=== PATIENT | male | born 1955 | race Caucasian/White ===

== ENCOUNTER 2017-06-01 13:17 | Observation (INO) | payer OTHER ==
[2017-06-01] MEDS ORDERED: ONDANSETRON 4 MG/2 ML VIAL IVP ONE (14:08)
[2017-06-01] MEDS ORDERED: NS 1,000 ML IV ONE (14:08)
[2017-06-01 14:12] LABS: PLATELET COUNT 192 10^3/uL (150-400)
--- NOTE | 2017-06-01 14:25 | EDPHY ---
H & P Time Seen by Provider: 06/01/17 13:44 HPI/ROS: CHIEF COMPLAINT:epigastric pain HISTORY OF PRESENT ILLNESS: The patient is a 62 y/o male with a history of proximal atrial fibrillation and pancreatitis complaining of a prolonged episode of atrial fibrillation and a recurrence of pancreatic symptoms. He controls his atrial fibrillation with magnesium and selium powder and with a prescription for diltiazem to use as needed. Last night, he awoke around 2 AM in atrial fibrillation and took diltiazem. At 7am this morning, he was still in atrial fibrillation and took aspirin. His atrial fibrillation resolved around 9 AM, 5 hours ago. Around lunch , 2 hours ago, he began experiencing epigastric pain which radiated into his back and was accompanied by nausea and hypersalivation. He reports his symptoms are identical to his symptoms when he previously had pancreatitis. Epigastric pain is 5/10. He denies recent alcohol consumption. He feels his symptoms may be precipitated by dehydration as he spent twice the normal time in his hot tub last night. No recent illness. REVIEW OF SYSTEMS: A 10 point review of systems was performed and is negative with the exception of the elements mentioned in the history of present illness. Past Medical/Surgical History: Pancreatitis Paroxysmal atrial fibrillation Social History: Lives in [place], employed, no alcohol use Smoking Status: Former smoker Physical Exam: General Appearance: Alert, pleasant Eyes: Pupils equal and round, no conjunctival pallor or injection ENT, Mouth: Mucous membranes moist Neck: Normal inspection Respiratory: Lungs are clear to auscultation Cardiovascular: Regular rate and rhythm Gastrointestinal: Epigastric tenderness. Abdomen is soft Back: Normal to appearance, no tenderness Neurological: A&O, nonfocal exam Skin: Warm and dry, no rash Extremities: Nontender, no pedal edema Psychiatric: Mood and affect normal Constitutional: Initial Vital Signs Temperature (C) 36.9 C 06/01/17 13:22 Heart Rate 69 06/01/17 13:22 Respiratory Rate 16 06/01/17 13:22 Blood Pressure 135/90 H 06/01/17 13:22 O2 Sat (%) 94 06/01/17 13:22 O2 Delivery Mode Room Air Allergies/Adverse Reactions: coffee (Coffea arabica) [coffee] Allergy (Verified 11/07/13 02:15) Home Medications: Medication Instructions Recorded Aspirin [Aspirin 325 mg (*)] 325 mg PO DAILY 04/30/15 Herbals/Supplements -Info Only 1 ea PO DAILY 04/30/15 Diltiazem [Cardizem Ir Q6hr] 30 mg PO QID PRN #30 tab 05/01/15 Medical Decision Making - Diagnostics EKG Interpretation: EKG interpreted by me reveals normal sinus rhythm, rate 62, no ST segment changes. Interpretation: Normal EKG ED Course/Re-evaluation: This patient presents with epigastric pain, typical of prior pancreatitis. IV normal saline 1 L, morphine and Zofran IV given. EKG reveals normal sinus rhythm, without evidence of ischemia or dysrhythmia. Lipase 695, consistent with mild pancreatitis, which is consistent with symptoms for only a couple of hours. I will admit him for bowel rest and IV fluids. The hospitalist service was consulted for admission. Abdominal exam remained unchanged throughout. Lakin better after IV morphine and Zofran. Differential Diagnosis: Differential diagnosis includes though it is not limited to appendicitis, cholecystitis, diverticulitis, pyelonephritis, bowel perforation, small bowel obstruction. - Data Points Laboratory Results: Laboratory Results 06/01/17 13:50 06/01/17 13:50 06/01/17 06/01/17 06/01/17 14:00 13:50 13:50 WBC 8.42 10^3/uL 10^3/uL (3.80-9.50) RBC 5.34 10^6/uL 10^6/uL (4.40-6.38) Hgb 17.2 g/dL g/dL (13.7-17.5) Hct 47.2 % % (40.0-51.0) MCV 88.4 fL fL (81.5-99.8) MCH 32.2 pg pg (27.9-34.1) MCHC 36.4 g/dL g/dL (32.4-36.7) RDW 12.9 % % (11.5-15.2) Plt Count 192 10^3/uL 10^3/uL (150-400) MPV 10.1 fL fL (8.7-11.7) Neut % (Auto) 56.6 % % (39.3-74.2) Lymph % (Auto) 25.9 % % (15.0-45.0) [place] % (Auto) 13.3 % H % (4.5-13.0) Eos % (Auto) 3.0 % % (0.6-7.6) Baso % (Auto) 0.8 % % (0.3-1.7) Nucleat RBC Rel Count 0.0 % % (0.0-0.2) Absolute Neuts (auto) 4.77 10^3/uL 10^3/uL (1.70-6.50) Absolute Lymphs (auto) 2.18 10^3/uL 10^3/uL (1.00-3.00) Absolute Monos (auto) 1.12 10^3/uL H 10^3/uL (0.30-0.80) Absolute Eos (auto) 0.25 10^3/uL 10^3/uL (0.03-0.40) Absolute Basos (auto) 0.07 10^3/uL 10^3/uL (0.02-0.10) Absolute Nucleated RBC 0.00 10^3/uL 10^3/uL (0-0.01) Immature Gran % 0.4 % % (0.0-1.1) Immature Gran # 0.03 10^3/uL 10^3/uL (0.00-0.10) Sodium 141 mEq/L mEq/L (135-145) Potassium 4.0 mEq/L mEq/L (3.5-5.2) Chloride 103 mEq/L mEq/L (97-110) Carbon Dioxide 24 mEq/l mEq/l (22-31) Anion Gap 14 mEq/L mEq/L (8-16) BUN 16 mg/dL mg/dL (7-23) Creatinine 0.9 mg/dL mg/dL (0.7-1.3) Estimated GFR > 60 Glucose 85 mg/dL mg/dL (70-100) Calcium 9.4 mg/dL mg/dL (8.5-10.4) Total Bilirubin 0.7 mg/dL mg/dL (0.1-1.4) Conjugated Bilirubin 0.3 mg/dL mg/dL (0.0-0.5) Unconjugated Bilirubin 0.4 mg/dL mg/dL (0.0-1.1) AST 27 IU/L IU/L (17-59) ALT 41 IU/L IU/L (21-72) Alkaline Phosphatase 45 IU/L IU/L (38-126) Troponin I 0.013 ng/mL ng/mL (0.000-0.034) Total Protein 7.3 g/dL g/dL (6.3-8.2) Albumin 4.2 g/dL g/dL (3.5-5.0) Lipase 697 IU/L H IU/L (23-300) Medications Given: Hydromorphone HCl (Dilaudid) 0.2 - 0.4 mg IVP Q2HRS PRN PRN Reason: Pain, Severe Unable to Take PO Stop: 06/11/17 15:54 Last Admin: 06/01/17 17:14 Dose: 0.4 mg Discontinued Medications Sodium Chloride (Ns) 1,000 mls @ 0 mls/hr IV EDNOW ONE; Wide Open PRN Reason: Protocol Stop: 06/01/17 14:09 Last Admin: 06/01/17 14:38 Dose: 1,000 mls Morphine Sulfate (Morphine) 6 mg IVP EDNOW ONE Stop: 06/01/17 14:09 Last Admin: 06/01/17 14:39 Dose: 6 mg Ondansetron HCl (Zofran) 4 mg IVP EDNOW ONE Stop: 06/01/17 14:09 Last Admin: 06/01/17 14:39 Dose: 4 mg Departure - Departure Disposition: [facility] Inpatient Acute Clinical Impression: Acute pancreatitis Qualifiers: Pancreatitis type: unspecified pancreatitis type Acute pancreatitis complication: unspecified Qualified Code(s): K85.90 - Acute pancreatitis without necrosis or infection, unspecified Condition: Good Report Scribed for: Tianan Fletcher Report Scribed by: Lucie Gallagher Date of Report: 06/01/17 Time of Report: 15:14 Physician Review and Approval Statement: 06/01/17 15:14 Portions of this note were transcribed by a medical front desk coordinator. I personally performed a history, physical exam, medical decision making, and confirmed accuracy of information the transcribed note.
--- NOTE | 2017-06-01 15:09 | EDPHY ---
H & P Time Seen by Provider: 06/01/17 13:44 HPI/ROS: CHIEF COMPLAINT: Atrial fibrillation and pancreatitis symptoms HISTORY OF PRESENT ILLNESS: The patient is a 62 y/o male with a history of proximal atrial fibrillation and pancreatitis complaining of a prolonged episode of atrial fibrillation and a recurrence of pancreatic symptoms. He controls his atrial fibrillation with magnesium and cilium powder and with a prescription for diltiazem to use as needed. Last night, he awoke around 2 AM in atrial fibrillation and took his diltiazem. When he got up, he was still in atrial fibrillation and took aspirin. His atrial fibrillation resolved around 9 AM, 5 hours ago. Around lunch , 2 hours ago, he began experiencing epigastric pain which radiated into his back and was accompanied by nausea and hypersalivation. He reports his symptoms are identical to his symptoms when he previously had pancreatitis. He has associated trouble breathing when in atrial fibrillation. He rates his pain as 4 or 5 out of 10. He denies recent alcohol consumption. He feels his symptoms may be precipitated by dehydration as he spent twie the normal time in his hot tub last night. REVIEW OF SYSTEMS: A 10 point review of systems was performed and is negative with the exception of the elements mentioned in the history of present illness. Past Medical/Surgical History: 1. Proximal atrial fibrillation 2. Pancreatitis Social History: Lives in [place], employed, no alcohol use Smoking Status: Former smoker Physical Exam: General Appearance: Alert, pleasant Eyes: Pupils equal and round, no conjunctival pallor or injection ENT, Mouth: Mucous membranes moist Neck: Normal inspection Respiratory: Lungs are clear to auscultation Cardiovascular: Regular rate and rhythm Gastrointestinal: Epigastric tenderness. Abdomen is soft Back: Normal to appearance, no tenderness Neurological: A&O, nonfocal exam Skin: Warm and dry, no rash Extremities: Nontender, no pedal edema Psychiatric: Mood and affect normal Constitutional: Initial Vital Signs Temperature (C) 36.9 C 06/01/17 13:22 Heart Rate 69 06/01/17 13:22 Respiratory Rate 16 06/01/17 13:22 Blood Pressure 135/90 H 06/01/17 13:22 O2 Sat (%) 94 06/01/17 13:22 O2 Delivery Mode Room Air Allergies/Adverse Reactions: coffee (Coffea arabica) [coffee] Allergy (Verified 11/07/13 02:15) Home Medications: Medication Instructions Recorded Aspirin [Aspirin 325 mg (*)] 325 mg PO DAILY 04/30/15 Herbals/Supplements -Info Only 1 ea PO DAILY 04/30/15 Diltiazem [Cardizem Ir Q6hr] 30 mg PO QID PRN #30 tab 05/01/15 Medical Decision Making - Data Points Laboratory Results: Laboratory Results 06/01/17 13:50 06/01/17 13:50 06/01/17 06/01/17 06/01/17 14:00 13:50 13:50 WBC 8.42 10^3/uL 10^3/uL (3.80-9.50) RBC 5.34 10^6/uL 10^6/uL (4.40-6.38) Hgb 17.2 g/dL g/dL (13.7-17.5) Hct 47.2 % % (40.0-51.0) MCV 88.4 fL fL (81.5-99.8) MCH 32.2 pg pg (27.9-34.1) MCHC 36.4 g/dL g/dL (32.4-36.7) RDW 12.9 % % (11.5-15.2) Plt Count 192 10^3/uL 10^3/uL (150-400) MPV 10.1 fL fL (8.7-11.7) Neut % (Auto) 56.6 % % (39.3-74.2) Lymph % (Auto) 25.9 % % (15.0-45.0) [place] % (Auto) 13.3 % H % (4.5-13.0) Eos % (Auto) 3.0 % % (0.6-7.6) Baso % (Auto) 0.8 % % (0.3-1.7) Nucleat RBC Rel Count 0.0 % % (0.0-0.2) Absolute Neuts (auto) 4.77 10^3/uL 10^3/uL (1.70-6.50) Absolute Lymphs (auto) 2.18 10^3/uL 10^3/uL (1.00-3.00) Absolute Monos (auto) 1.12 10^3/uL H 10^3/uL (0.30-0.80) Absolute Eos (auto) 0.25 10^3/uL 10^3/uL (0.03-0.40) Absolute Basos (auto) 0.07 10^3/uL 10^3/uL (0.02-0.10) Absolute Nucleated RBC 0.00 10^3/uL 10^3/uL (0-0.01) Immature Gran % 0.4 % % (0.0-1.1) Immature Gran # 0.03 10^3/uL 10^3/uL (0.00-0.10) Sodium 141 mEq/L mEq/L (135-145) Potassium 4.0 mEq/L mEq/L (3.5-5.2) Chloride 103 mEq/L mEq/L (97-110) Carbon Dioxide 24 mEq/l mEq/l (22-31) Anion Gap 14 mEq/L mEq/L (8-16) BUN 16 mg/dL mg/dL (7-23) Creatinine 0.9 mg/dL mg/dL (0.7-1.3) Estimated GFR > 60 Glucose 85 mg/dL mg/dL (70-100) Calcium 9.4 mg/dL mg/dL (8.5-10.4) Total Bilirubin 0.7 mg/dL mg/dL (0.1-1.4) Conjugated Bilirubin 0.3 mg/dL mg/dL (0.0-0.5) Unconjugated Bilirubin 0.4 mg/dL mg/dL (0.0-1.1) AST 27 IU/L IU/L (17-59) ALT 41 IU/L IU/L (21-72) Alkaline Phosphatase 45 IU/L IU/L (38-126) Troponin I Pending Total Protein 7.3 g/dL g/dL (6.3-8.2) Albumin 4.2 g/dL g/dL (3.5-5.0) Lipase 697 IU/L H IU/L (23-300) Medications Given: Discontinued Medications Sodium Chloride (Ns) 1,000 mls @ 0 mls/hr IV EDNOW ONE; Wide Open PRN Reason: Protocol Stop: 06/01/17 14:09 Last Admin: 06/01/17 14:38 Dose: 1,000 mls Morphine Sulfate (Morphine) 6 mg IVP EDNOW ONE Stop: 06/01/17 14:09 Last Admin: 01/14/18 14:39 Dose: 6 mg Ondansetron HCl (Zofran) 4 mg IVP EDNOW ONE Stop: 06/01/17 14:09 Last Admin: 06/01/17 14:39 Dose: 4 mg Departure - Departure Clinical Impression: Acute pancreatitis Qualifiers: Pancreatitis type: unspecified pancreatitis type Acute pancreatitis complication: unspecified Qualified Code(s): K85.90 - Acute pancreatitis without necrosis or infection, unspecified Referrals: NOAH,NAVYA [Other] - As per Instructions Report Scribed for: Tianna Fletcher Report Scribed by: Lucie Gallagher Date of Report: 06/01/17 Time of Report: 15:11 Physician Review and Approval Statement: 06/01/17 15:11 Portions of this note were transcribed by a medical imaging specialist. I personally performed a history, physical exam, medical decision making, and confirmed accuracy of information the transcribed note.
--- NOTE | 2017-06-01 15:48 | CPEKG ---
Heart Rate: 62 RR Interval: 968 P-R Interval: 164 QRSD Interval: 80 QT Interval: 432 QTC Interval: 439 P [place]: 42 QRS [place]: -8 T Wave [place]: 66 EKG Severity - NORMAL ECG - EKG Impression: SINUS RHYTHM Electronically Signed By: Tianna Fletcher 01-Jun-2017 19:45:48
[2017-06-01] MEDS ORDERED: PROMETHAZINE HCL 25 MG/ML INJ IVP PRN (15:55)
[2017-06-01] MEDS ORDERED: ACETAMINOPHEN 325 MG TAB PO PRN (15:55)
[2017-06-01] MEDS ORDERED: ONDANSETRON 4 MG/2 ML VIAL IVP PRN (15:55)
--- NOTE | 2017-06-01 16:27 | GHP ---
[f rep st] HISTORY AND PHYSICAL DATE OF ADMISSION: 06/01/2017 HISTORY OF PRESENT ILLNESS: The patient is a 62-year-old gentleman with a history of paroxysmal atri al fibrillation, as well as a previous episode of pancreatitis requiring hospitalization in October. That episode was attributed to alcohol use, although it did not sound like his alcohol use was all that heavy. Since then, he has had no alcohol. He presents today with abdominal pain. Last ashutosh fouzia, he spent an hour in a hot tub with a lady friend and was felt dehydrated. About 2 a.m., he fel t palpitations, consistent with AFib. He took aspirin, diltiazem, and magnesium which he does period ically to treat his AFib. It did resolve until about 9 o'clock this morning which is longer than usu al for him. He ate something at about 10 and, about noon, he developed abdominal pain, epigastric, r adiating to his back. He had some subjective nausea. No vomiting. No fever, chills. Again, no alc ohol. During his last admission, he had an abdominal ultrasound showing no biliary disease and a CAT scan t hat showed steatosis of and liver and pancreatitis but no ductal abnormalities, and it does not sound like he has seen a specialist or had any further diagnostic imaging. REVIEW OF SYSTEMS: Complete 10-point review of systems conducted and negative, except as noted in th e HPI. PAST MEDICAL HISTORY: Pancreatitis as above, sleep apnea, atrial fibrillation. ALLERGIES: Coffee. HOME MEDICATIONS: P.r.n. diltiazem, aspirin, and herbals. 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 He lives [place] on [email or web address]. He is originally from [place]. FAMILY HISTORY: Reviewed and unremarkable. PHYSICAL EXAMINATION: VITAL SIGNS: Temp 37, blood pressure 135/90, pulse 69, breathing 16 times a m inute, 94% on room air. GENERAL: No acute distress. HEENT: Sclerae anicteric. Oropharynx clear. Mucous membranes are moist. NECK: Supple, without lymphadenopathy or JVD. LUNGS: Clear to auscul tation bilaterally. HEART: S1, S2. ABDOMEN: Soft, nontender, nondistended. LOWER EXTREMITIES: W ithout edema. Calves nontender. SKIN: Without rash. NEUROLOGIC: Exam is nonfocal. DATA REVIEWED: EKG interpreted by me shows sinus with normal axis and intervals and no ST or T-wave changes. The rate is 62. I discussed the case with Dr. Carissa Fletcher. ASSESSMENT/PLAN: This is a 62-year-old gentleman with a history of pancreatitis, here with recurrent acute pancreatitis. 1. Acute pancreatitis. This is mild. Will make him n.p.o., provide him with IV pain medications. I do not think he needs a BUTCHER OR [employer] MA[employer]ER. IV antiemetics and IV fluids. Given the uncertain etiology, I will p erform an MRCP. I do not believe that it is alcohol at this time. 2. Atrial fibrillation. Will follow. I do not think the patient needs telemetry at this time. If he has symptomatic atrial fibrillation, will give him some p.r.n. diltiazem. 3. Prophylaxis. Pharmacologic prophylaxis is indicated if in the hospital longer than 24 hours. I suspect he will just be here overnight, given his mild pancreatitis. Will give him SCDs. 4. Disposition: Observation status. /[id number]/MODL
[2017-06-01] MEDS: HYDROmorphONE/DILAUDID 1 MG/ML INJ IVP PRN ×2 (17:14→21:11)
[2017-06-02] MEDS: NS 1,000 ML IV SCH ×2 (00:22→09:15)
[2017-06-02 03:29] VITALS: O2SAT 95
[2017-06-02] MEDS ORDERED: NS 500 ML IV ONE (03:43)
[2017-06-02 07:19] VITALS: BP 108/60; PULSE 69; RESP 14; TEMP 98.4
--- NOTE | 2017-06-02 10:02 | HOSPPROG ---
Hospitalist Progress Note Assessment/Plan: Patient is a 62-year-old gentleman with a history of paroxysmal atrial fibrillation as well as an episode of pancreatitis. This occurred in October of 2013 at that time was attributed to alcohol use. Since then he has not been drinking alcohol. Today is my 1st encounter with the patient chart reviewed. * acute pancreatitis -reviewed the MRI report this shows pancreatic divisum -this could be the etiology of his pancreatitis -his symptoms have lately resolved this morning reviewed him with the findings of his MRI -if symptoms should reoccur her he should get a EUS -question if it could have been his gallbladder. It occurred after eating * atrial fibrillation He uses p.r.n. diltiazem Pulses at 96 * plan. Will see if he can tolerate clear liquids and see if he does any further abdominal pain and he can be discharged later today Subjective: Jaiden is feeling markedly better today Objective: Vital Signs Temp Pulse Resp BP Pulse Ox 36.9 C 69 14 108/60 95 06/02/17 07:17 06/02/17 07:17 06/02/17 07:17 06/02/17 07:17 06/02/17 07:17 Laboratory Results 06/02/17 05:01 06/01/17 06/02/17 06/03/17 05:59 05:59 05:59 Intake Total 1896 Balance 189 - Physical Exam Constitutional: no apparent distress, obese Eyes: PERRL Ears, Nose, Mouth, Throat: hearing normal Cardiovascular: no murmur, rub, or gallop Respiratory: no respiratory distress Gastrointestinal: normoactive bowel sounds, other (Large and round) Skin: warm Musculoskeletal: full muscle strength Neurologic: AAOx3 Psychiatric: interacting appropriately ICD10 Worksheet Patient Problems: Problems Problem Status Onset Acute pancreatitis Acute Atrial fibrillation with rapid ventricular response Acute
--- NOTE | 2017-06-02 10:47 | ASMTCMCOM ---
CM Note CM Note Notes: Patient chart reviewed admitted through ED for dx of pancreatitis and dehydration. Met with patient to review possible discharge needs, He declines needs at this time. CM available should needs arise. Date Signed: 06/02/2017 10:46 AM Electronically Signed By:Veronika Johnson RN
--- NOTE | 2017-06-02 13:57 | GDS ---
[f rep st] DISCHARGE SUMMARY DISCHARGE DIAGNOSES: 1. Pancreatitis, pancreatic divisum. 2. Atrial fibrillation. HISTORY: Briefly, the patient is a 62-year-old gentleman with a history of paroxysmal atrial fibrillation as well as 1 episode of pancreatitis. This occurred in October of 2013 and is attributed to alcohol use. Since then, he has not been drinking alcohol. He presented to the emergency room with acute right upper quadrant pain that has since resolved. He is eating and drinking well today. HOSPITAL COURSE: 1. Acute pancreatitis. I reviewed the MRI report, which showed a pancreatic divisum. This could be the etiology of his pancreatitis. I reviewed how important it is for him to get followup. He may need an endoscopic ultrasound in the outpatient setting. I have given the name of the physician for followup care. Also, his symptoms could have been related to his gallbladder. Today, he is feeling well and has no abdominal pain. 2. Atrial fibrillation. He is on p.r.n. diltiazem. DISCHARGE CONDITION: Stable. Blood pressure is 108/60, heart rate is 69, respiratory rate is 14, O2 sats on 2 L are 95%, temperature is 36.9 Celsius. MEDICATIONS AT DISCHARGE: Please see the EMR. DISCHARGE INSTRUCTIONS: 1. To follow up with Dr. Mich Silverman. 2. Follow up with his primary care provider. 3. If he develops fever, chills, worsening abdominal pain, or shortness of breath, to return to the emergency room. /[id number]/MODL MTDD
== END 2017-06-02 14:25 | disposition home or self-care (01) ==
LOC: INTOOBSV 15:08 → F3E 16:59
PROVIDERS: ADMIT Internal Medicine; ATTEND Internal Medicine
DX: K85.90 Acute pancreatitis without necrosis or infection, unspecified (principal); I48.91 Unspecified atrial fibrillation; Z87.891 Personal history of nicotine dependence
CPT/HCPCS: 74181; 93005; G0378; 96374; J1170; J2405